=== PATIENT | female | born 1945 | race Caucasian/White ===

== ENCOUNTER 2022-03-25 04:49 | Day surgery (SDC) | payer OTHER ==
[2022-03-22 16:35] VITALS: BMI 28.0
[2022-03-25 11:16] VITALS: TEMP 98
[2022-03-25 12:05] VITALS: BP 126/87; PULSE 64
== END 2022-03-25 12:08 | disposition home or self-care (01) ==
LOC: JASU-ENDO 04:49
PROVIDERS: ATTEND Internal Medicine Gastroenterology
PROC: 0DB68ZX Excision of Stomach, Via Natural or Artificial Opening Endoscopic, Diagnostic (ICD-10-PCS; 2022-03-25)
PROC: 0DB48ZX Excision of Esophagogastric Junction, Via Natural or Artificial Opening Endoscopic, Diagnostic (ICD-10-PCS; 2022-03-25)
PROC: 0DB98ZX Excision of Duodenum, Via Natural or Artificial Opening Endoscopic, Diagnostic (ICD-10-PCS; principal; 2022-03-25 11:00)
DX: K21.9 Gastro-esophageal reflux disease without esophagitis (principal); K44.9 Diaphragmatic hernia without obstruction or gangrene; K29.70 Gastritis, unspecified, without bleeding
CPT/HCPCS: 88305-TC; 88342-TC

== ENCOUNTER 2023-01-23 04:37 | Day surgery (SDC) | payer OTHER ==
[2023-01-19 13:48] VITALS: BMI 28.0
[2023-01-23 10:33] VITALS: TEMP 98.7
[2023-01-23 11:23] VITALS: BP 132/83; PULSE 68; RESP 21
[2023-01-23] MEDS ORDERED: EPINEPHrine 1:10,000 (P-F SYR) 1 MG/10 ML DISP.SYRIN ONE (13:20)
== END 2023-01-23 11:37 | disposition home or self-care (01) ==
LOC: JASU-ENDO 04:37
PROVIDERS: ATTEND Internal Medicine Gastroenterology
PROC: 0DBL8ZX Excision of Transverse Colon, Via Natural or Artificial Opening Endoscopic, Diagnostic (ICD-10-PCS; 2023-01-23)
PROC: 0DBN8ZX Excision of Sigmoid Colon, Via Natural or Artificial Opening Endoscopic, Diagnostic (ICD-10-PCS; 2023-01-23)
PROC: 0DBK8ZX Excision of Ascending Colon, Via Natural or Artificial Opening Endoscopic, Diagnostic (ICD-10-PCS; 2023-01-23)
PROC: 0DBL8ZX Excision of Transverse Colon, Via Natural or Artificial Opening Endoscopic, Diagnostic (ICD-10-PCS; 2023-01-23)
PROC: 0DBH8ZX Excision of Cecum, Via Natural or Artificial Opening Endoscopic, Diagnostic (ICD-10-PCS; 2023-01-23)
PROC: 0DBM8ZX Excision of Descending Colon, Via Natural or Artificial Opening Endoscopic, Diagnostic (ICD-10-PCS; principal; 2023-01-23 09:00)
DX: Z12.11 Encounter for screening for malignant neoplasm of colon (principal); D12.3 Benign neoplasm of transverse colon; D12.5 Benign neoplasm of sigmoid colon; K63.5 Polyp of colon; K64.8 Other hemorrhoids; K57.30 Diverticulosis of large intestine without perforation or abscess without bleeding; Z86.010 Personal history of colon polyps; I10 Essential (primary) hypertension
CPT/HCPCS: 88305-TC